=== PATIENT | female | born 1985 | race Caucasian/White ===

== ENCOUNTER 2022-11-20 13:45 | Outpatient (OUT) | payer MEDICAID, SELFPAY | END 2022-11-20 13:46 | disposition home or self-care (01) | LOC: LAB 13:54 | DX: F11.20 Opioid dependence, uncomplicated (principal); R79.89 Other specified abnormal findings of blood chemistry | CPT/HCPCS: 36415; 84702 ==

== ENCOUNTER 2022-11-25 13:10 | Emergency (ER) | payer MEDICAID, SELFPAY ==
[2022-11-25 13:35] VITALS: BP 123/70; PULSE 91; RESP 18; TEMP 37.2; O2SAT 99; BMI 26.9
--- NOTE | 2022-11-25 13:46 | XR_ITS ---
[place] [id number] Patient Name: ARTUR KAUFFMAN MRN: [id number] date: 1985 Sex: F Assigned Patient Location: ER Current Patient Location: ER Accession/Order Number: [id number] Exam Date: 11/25/2022 13:56 Report Date: 11/25/2022 14:19 At the request of: DREW ROBERTSON Procedure: XR chest 1V EXAM: XR chest 1V, 11/25/2022 HISTORY: Cough COMPARISON: Previous x-ray from 2014. TECHNIQUE: Portable AP upright x-ray of the chest. FINDINGS: Cardiac silhouette within normal limits. No hilar or mediastinal enlargement. Calcified nodule left upper lobe consistent with old granuloma. No focal infiltrate or pleural effusion. No acute osseous findings. IMPRESSION: No acute cardiopulmonary findings. Electronically authenticated by: SHABBIR OSHEA Date: 11/25/2022 14:19
--- NOTE | 2022-11-25 13:46 | ECG_ITS ---
[facility] Test Date: 2022-11-25 Pat Name: Coty Bacon Department: Room: - Gender: Female Licensing Officer: : 1985 Requested By: [id number] Order Number: [id number] Reading MD: PERFECTO COLIN Measurements Intervals [place] Rate: 88 P: 77 MI: 134 QRS: 75 QRSD: 82 T: 38 QT: 360 QTc: 406 Interpretive Statements [address]/T wave changes, myocardial ischemia can't be excluded 9130 borderline ECG Compared to ECG 11/25/2022 13:55:38 No significant changes Electronically Signed On 11-26-2022 7:09:20 EDT by PERFECTO COLIN
--- NOTE | 2022-11-25 13:48 | ED.URI1 ---
HPI - URI/Sore Throat General Chief Complaint: Shortness of Breath/Dyspnea Stated Complaint: COUGH Time Seen by Provider: 11/25/22 13:40 Source: patient Limitations: no limitations History of Present Illness HPI Narrative: patient is a 37-year-old female who presents to the emergency department for upper respiratory symptoms for the past two days. She states she is approximately one month . She reports a two day history of subjective fever, nasal congestion, cough with sputum production and chest wall pain with coughing. She vapes daily. No sick contacts in the home. She has not taken her temperature at home but states she has felt warm, she took ibuprofen prior to arrival. No hemoptysis or leg swelling. Related Data Previous Rx's Medication Instructions Recorded albuterol sulfate 90 mcg/actuation 2 inh inhalation Q4H PRN shortness 11/25/22 aerosol inhaler of breath or wheezing #8.5 grams ondansetron 4 mg disintegrating 4 mg PO Q6H PRN nausea and 11/25/22 tablet vomiting #12 tabs Allergies Allergy/AdvReac Type Severity Reaction Status Date / Time ciprofloxacin [From Cipro] AdvReac Intermediate Verified 11/25/22 13:35 bactrim AdvReac Intermediate Uncoded 11/25/22 13:35 Review of Systems ROS Constitutional Denies: fever or chills Ears, nose, mouth, and throat Denies: throat pain or neck pain Respiratory Reports: cough and chest congestion; Denies: shortness of breath Gastrointestinal Denies: nausea or vomiting Musculoskeletal Denies: back pain Integumentary/Breast Denies: rash Psychiatric Denies: anxiety Endocrine Denies: excessive urination Exam Narrative Exam Narrative: Gen.: Awake, alert, in no distress Head: Normocephalic, atraumatic ENT: Moist mucous membranes Respiratory: No respiratory distress, lungs clear bilaterally Cardio: Regular rate and rhythm Extremities: Moves extremities equally Psych: Normal mood and affect Neuro: No focal neuro deficit Skin: Warm, dry, intact Constitutional Vital Signs - 24 hr 11/25/22 13:35 Temperature 99.0 F Pulse Rate [Monitor] 91 H Respiratory Rate 18 Blood Pressure [Left Arm] 123/70 H Pulse Oximetry 99 Oxygen Delivery Method Room Air Course Vital Signs Vital signs: Vital Signs Temperature 99.0 F 11/25/22 13:35 Pulse Rate 91 H 11/25/22 13:35 Respiratory Rate 18 11/25/22 13:35 Blood Pressure 123/70 H 11/25/22 13:35 Pulse Oximetry 99 11/25/22 13:35 Oxygen Delivery Method Room Air 11/25/22 13:35 Temperature 99.0 F 11/25/22 13:35 Pulse Rate 91 H 11/25/22 13:35 Respiratory Rate 18 11/25/22 13:35 Blood Pressure 123/70 H 11/25/22 13:35 Pulse Oximetry 99 11/25/22 13:35 Oxygen Delivery Method Room Air 11/25/22 13:35 MDM - URI/Sore Throat MDM Narrative Medical decision making narrative: chest x-ray was performed, unremarkable and EKG shows no evidence of acute cardiopulmonary changes. Covid test is positive. Patient will be treated with albuterol inhaler, Zofran, as she is we cannot give any additional pain medications or cough medications. She has stable vital signs in the emergency department with no hypoxia or tachycardia. She is encouraged to continue Tylenol for comfort and fever. Follow-up with DEPOSIT CLERK and increase fluids. Return to the Emergency Room if symptoms change or worsen. Medical Records Attestation: I reviewed the patient's medical records. Lab Data Attestation: I reviewed the patient's lab results. Labs: Lab Results 11/25/22 Range/Units 13:50 SARS-CoV-2 (PCR) Positive A (NEGATIVE) Imaging Data Chest x-ray: Attestation: I have reviewed the pertinent imaging results. Radiologist's impression: Procedure: XR chest 1V EXAM: XR chest 1V, 11/25/2022 HISTORY: Cough COMPARISON: Previous x-ray from 2013. TECHNIQUE: Portable AP upright x-ray of the chest. FINDINGS: Cardiac silhouette within normal limits. No hilar or mediastinal enlargement. Calcified nodule left upper lobe consistent with old granuloma. No focal infiltrate or pleural effusion. No acute osseous findings. IMPRESSION: No acute cardiopulmonary findings. Electronically authenticated by: SHABBIR OSHEA Date: 11/25/2022 14:19 ECG Data Attestation: I personally reviewed and interpreted this ECG as follows: (normal sinus rhythm at a rate of eighty-eight, no acute ST elevation or ectopy. EKG reviewed by attending physician.) ECG interpretation date: 11/25/22 ECG interpretation time: 14:23 Discharge Plan Discharge Chief Complaint: Shortness of Breath/Dyspnea Clinical Impression: COVID-19 Patient Disposition: Home, Self-Care Time of Disposition Decision: 14:20 Condition: Good Prescriptions / Home Meds: New albuterol sulfate 90 mcg/actuation HFA aerosol inhaler 2 inh inhalation Q4H PRN (Reason: shortness of breath or wheezing) Qty: 8.5 0RF ondansetron 4 mg tablet,disintegrating 4 mg PO Q6H PRN (Reason: nausea and vomiting) Qty: 12 0RF Instructions: COVID-19 (Coronavirus Disease 2019) (ED) Stand Alone Forms: Portal Instructions Referrals: Physician,Non-Staff, MD [Primary Care Provider] - 1 week
[2022-11-25 14:14] LABS: SARS-CoV-2 Ag POSITIVE (NEGATIVE)
== END 2022-11-25 14:34 | disposition home or self-care (01) ==
PROVIDERS: Physician Assistant; Emergency Provider Emergency Medicine Emergency Medical Services
DX: O98.511 Other viral diseases complicating pregnancy, first trimester (principal); U07.1 COVID-19; Z3A.01 Less than 8 weeks gestation of pregnancy
CPT/HCPCS: 71045; 87635; 93005; 99285

== ENCOUNTER 2024-12-13 15:16 | Outpatient (OUT) | payer MEDICAID, SELFPAY ==
--- OUTSIDE RECORDS SUMMARY | 2018-12-30 10:00 | XMS_ITS | Continuity of Care Document ---
Author Organization [facility] Address [address] [place] [address] Phone Care Team Providers Care Hides And Skins Colorer Name Role Phone guillegunnar PRADEEPJean Marie Hughesdesirerachel Unavailable Unavailabl e Allergies, Adverse Reactions, Alerts Substance Reaction Status Criticality No Known Allergies Active No Inform ation Medications Medication Instructions Dosage Effective Dates (start - stop) Status Comments Mobic 15 mg tablet take 1 tablet by ora l route every day - Active Wellbutrin SR 100 mg tablet, 12 hr sustained-release take 1 tablet by oral route 2 times every day 100 MG - Active buspirone 5 mg tablet take 1 tablet by o ral route 2 times every day 5 MG - Active prednisone 1 mg tablet take 1 tablet by oral route every day 1 MG - Active Remeron 15 mg tablet take 1 tablet by or al route every day before bedtime 15 MG - Active melatonin 5 mg capsule - Active Procedures Procedure Date Nutrit [facility] Dis Dec Tobacco Counseling Oral Hygiene Instruction Extract; Erupted Th/exposted Rt 019 Extract; Erupted Th/exposted Rt 019 Extract; Erupted Th/exposted Rt 019 CHIROPRACTIC MANIPULATION Panoramic Film Limited Oral Eval Oral Hygiene Instruction CHIROPRACTIC MANIPULATION CHIROPRACTIC MANIPULATION CHIROPRACTIC MANIPULATION OFFICE/OUTPATIENT VISIT, EST CHIROPRACTIC MANIPULATION CHIROPRACTIC MANIPULATION CHIROPRACTIC MANIPULATION CHIROPRACTIC MANIPULATION OFFICE/OUTPATIENT VISIT, EST INSERT INTRAUTERINE DEVICE Levonorgestrel iu contracept OFFICE/OUTPATIENT VISIT, EST Condoms NEW FP MEDICAID SPECIMEN HANDLING OFFICE/OUTPATIENT VISIT, EST ROUTINE VENIPUNCTURE CARE COORDINATION SPECIMEN HANDLING FLU VACCINE, 3 YRS & >, IM H1N1 OFFICE/OUTPATIENT VISIT, NEW ROUTINE VENIPUNCTURE RISK ASSISSMENT COUNSELING AND EDUCATION CARE COORDINATION TB INTRADERMAL TEST OFFICE/OUTPATIENT VISIT, EST URINE TEST Advance Directives Directive Yes / No Effective Date File Name No Information Encounters Encounter Description Practice Location Reason(s) For Visit Diagnoses Date Provider Providers Copied on Encounter [facility], [address] [place] [address], [id number], [place] tel:[phone] Dental Clinic extraction (chief complaint) Encounter for screening for dental disorder 9 Tejinder Lutz. [address] [place] [address], [id number], [place]. tel:[phone] [facility], [address] [place] [address], [id number], [place] tel:[phone] [facility] lumbar spine (chief complaint)l umbar spine (chief complaint) Segmental and somatic dysfunction of lumbar regionLow back painSegmental and somatic dysfunction of cervical region 9 Rudolph Dey. [address] [place] [address], [id number], [place]. tel:[phone] [facility], [address] [place] [address], [id number], [place] tel:[phone] Dental Clinic dental limited (chief complaint) Encounter for screening for dental disorder 9 Gillian De Guzman. [address] [place], [place], [id number], [place]. tel:[phone] [facility], [address] [place], [place], [id number], [place] tel:[phone] [facility] lumbar spine (chief complaint)l umbar spine (chief complaint) Segmental and somatic dysfunction of lumbar regionLow back painRadiculopathy , lumbar regionSegmental and somatic dysfunction of cervical region 9 Rudolph Dey. [address] [place], [place], [id number], [place]. tel:[phone] [facility], [address] [place], [place], [id number], [place] tel:[phone] [facility] lumbar spine (chief complaint)l umbar spine (chief complaint) Segmental and somatic dysfunction of lumbar regionLow back painRadiculopathy , lumbar regionSegmental and somatic dysfunction of cervical region 9 Rudolph Dey. [address] [place], [place], [id number], [place]. tel:[phone] [facility], [address] [place], [place], [id number], [place] tel:[phone] [facility] lumbar spine (chief complaint)l umbar spine (chief complaint) Segmental and somatic dysfunction of lumbar regionLow back painRadiculopathy , lumbar regionSegmental and somatic dysfunction of cervical region 9 Rudolph Dey. [address] [place], [place], [id number], [place]. tel:[phone] OFFICE/OUTPAT IENT VISIT, EST [facility], [address] [place], [place], [id number], [place] tel:[phone] [facility] est care (chief complaint) Joint pain of lower extremityAnxiety and depressionBlood pressure checkEncounter for medical examination to establish care 9 Kushal Whitlock. [address] [place], [place], [id number], [place]. tel:[phone] [facility], [address] [place], [place], [id number], [place] tel:[phone] [facility] lumbar spine (chief complaint)l umbar spine (chief complaint) Segmental and somatic dysfunction of lumbar regionLow back painRadiculopathy , lumbar regionSegmental and somatic dysfunction of cervical region 9 Rudolph Dey. [address] [place], [place], [id number], [place]. tel:[phone] [facility], [address] [place], [place], [id number], [place] tel:[phone] [facility] lumbar spine (chief complaint)l umbar spine (chief complaint) Segmental and somatic dysfunction of lumbar regionLow back painRadiculopathy , lumbar regionSegmental and somatic dysfunction of cervical region 9 Rudolph Dey. [address] [place] [address], [id number], [place]. tel:[phone] [facility], [address] [place], [place], [id number], [place] tel:[phone] [facility] lumbar spine (chief complaint)l umbar spine (chief complaint) Segmental and somatic dysfunction of lumbar regionLow back painRadiculopathy , lumbar regionSegmental and somatic dysfunction of cervical region 9 Rudolph Dey. [address] [place] [address], [id number], [place]. tel:[phone] [facility], [address], [place], [id number], [place] tel:[phone] [facility] lumbar spine (chief complaint)l umbar spine (chief complaint) Segmental and somatic dysfunction of lumbar regionLow back painRadiculopathy , lumbar regionSegmental and somatic dysfunction of cervical region 9 Rudolph Dey. [address] [place] [address], [id number], [place]. tel:[phone] OFFICE/OUTPAT IENT VISIT, EST [facility], [address] [place], [place], [id number], [place] tel:[phone] [facility] No Information 2 7-201 0 Lamp Alyssa. [address] [place], [place], [id number], [place]. tel:[phone] [facility], [address] [place], [place], [id number], [place] tel:[phone] [facility] No Information Mar-0 9-201 0 Lamp Alyssa. [address] [place], [place], [id number], [place]. tel:[phone] OFFICE/OUTPAT IENT VISIT, [facility], [address] [place], [place], [id number], [place] tel:[phone] [facility] No Information Mar-0 1-201 0 Claribel Soler. [address] [place], [place], [id number]. tel:[phone] [facility], [address] [place], [place], [id number], [place] tel:[phone] [facility] No Information 6-201 0 Lamp Alyssa. [address] [place], [place], [id number], [place]. tel:[phone] OFFICE/OUTPAT IENT VISIT, [facility], [address], [place], [id number], [place] tel:[phone] [facility] No Information 0 2-200 9 Claribel Soler. [address] [place], [place], [id number]. tel:[phone] [facility], [address] [place], [place], [id number], [place] tel:[phone] [facility] No Information 0 2-200 9 Verna Grimaldo. [address] [place], [place], [id number], [place]. tel:[phone] OFFICE/OUTPAT IENT VISIT, [facility], [address], [place], [id number], [place] tel:[phone] [facility] No Information 9 Claribel Soler. [address] [place], [place], [id number]. tel:[phone] OFFICE/OUTPAT IENT VISIT, EST [facility], [address] [place], [place], [id number], [place] tel:[phone] [facility] No Information 9 Verna Grimaldo. [address] [place], [place], [id number], [place]. tel:[phone] [facility], [address] [place], [place], [id number], [place] tel:[phone] [facility] physical (chief complaint) Sports Physical 9 Stierwalt DIVISION SALES MANAGER-C Judy. [address] [place], [address], [place]. tel:[phone] Family History Family Member Type Diagnosis Age At Onset Father Problem (finding) Alive and well Mother Problem (finding) Alive and well Payers Payer name Insurance type Covered libertarian ID Sid vaughan(laurel) D Medicaid Wrap - [facility] [id number] D Medicaid Primary [facility] [id number] Social History Type Description Quantity Date Captured Comments Alcohol Use Details beer & wine Caffeine Use Details Unknown Tobacco Use Status Heavy cigarette smok er (20-39 cigs/day) Smoking Status Heavy tobacco smoker Smoking Tobacco Use Details Cigarette: Age Started: 12 Cigarette: 20 Cigarettes per day Sex Female Sexual Orientation Straight or heterosexual Gender Identity Female Vital Signs Date / Time: Height Weight BMI Pulse Rate Blood Pressure Temperature Respiratory Rate Body Surface Area Head Circumference Head Circ. Percentile Wt./Virgil. Percentile BMI percentile Pulse Ox Inhaled Ox 2:26 PM 85 /min 118/79 mm[Hg] Chief Complaint And Reason For Visit From encounter dated '12/30/2018 14:00'. extraction (chief complaint). Description: extraction continue with treatment Reason For Referral Reason For Referral No Information Plan Of Treatment Date Type Action Status Goal Depression screening. Due on due Goal Tdap. Due on due Goal Influenza vaccine. Due on due Goal RLP. Due on due Goal RLP. Due on due Goal Influenza vaccine. Due on due Goal Tdap. Due on due Goal Depression screening. Due on due Goal RLP. Due on due Goal Influenza vaccine. Due on due Goal Tdap. Due on due Goal Depression screening. Due on due Goal Depression screening. Due on due Goal Tdap. Due on due Goal Influenza vaccine. Due on due Goal RLP. Due on due Goal Influenza vaccine. Due on due Goal RLP. Due on due Goal Tdap. Due on due Goal Depression screening. Due on due Goal Tdap. Due on due Goal Depression screening. Due on due Goal RLP. Due on due Goal Influenza vaccine. Due on due Goal Tdap. Due on due Goal Depression screening. Due on due Goal Influenza vaccine. Due on due Goal RLP. Due on due Goal Tdap. Due on due Goal Depression screening. Due on due Goal Influenza vaccine. Due on due Goal RLP. Due on due Goal RLP. Due on due Goal Influenza vaccine. Due on due Goal Depression screening. Due on due Goal Tdap. Due on due Goal Tdap. Due on due Goal RLP. Due on due Goal Influenza vaccine. Due on due Goal Depression screening. Due on due Goal Depression screening. Due on due Goal Tdap. Due on due Goal RLP. Due on due Goal Influenza vaccine. Due on due Goal PAP. Due on due History Of Present Illness Encounter Date Complaint History Of Prese nt Illness extraction extraction jen nue with treatment lumbar spine lumbar spine Pt continues to progress as anticipated.RI score today 39 dental limited dental Emergency , tooth #29 lumbar spine lumbar spine Pt continues to progress as anticipated.RI score today 42 lumbar spine lumbar spine pt reports sligh t improvement today. lumbar spine lumbar spine Pt reports suzi ess in left hip and knee. est care Pt is here to t care. Pt is currently staying at our sober living home. She says that she has hypertension and needs to be on medication. Pt is seeing [facility] for [facility]. All prescriptions in chart are from [facility] psych but she is unaware of the dosage. I set her up with women's health because she had an abnormal pap when she was in [facility] last month. Records release signed for [facility]. NDiltsCMAPanic disorder, PTSD, Social anxiety disorder diagnosed at [facility] mental health. Prescribed medications and unable to fill due to issues with insurance coverage transitioning inmate [facility] insurance to insurance started after release. Electric Refrigerator Servicer at [facility] notified her it should be fixed but unable to get medications filled at [facility]. Complaints of left knee and left hip pain. No known injury, no redness or swelling. 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 Unaware if this is causing her knee and left anterior hip pain.Placed on clonidine for BP while at [facility] for HTN after being placed on 1 south. HAs not been on medication since being in [place] [facility], no previous history of HTN prior to [facility] starting the medication 6 months ago. RGonzales DIGITAL MEDIA DESIGNER lumbar spine lumbar spine Pt reports pain in left low back/hip along with flare up of depression. lumbar spine lumbar spine Pt continues to progress as anticipated. lumbar spine Pt reports suzi ess in left hip. lumbar spine lumbar spine lumbar spine C/O low back savage n extending in to left hip. Pain also starting to effect left knee. Sx began 11 years during childbirth when felt left SI pop and hasn't been the same since. Also reports chronic achiness in both feet and explains was pigeon toed when a child and had to wear braces. Pt also in early stages of recovery from ADRIAN.Sx are the result of regular ADL'S. Pain is primarily at L3-L5 PVM on the Lt. and extends to the SI joint, Lt. Symptoms present with a pain scale of 8 (VAS = 1-10). Pain interferes with regular ADL's. Increase in pain with movement/ROM and ADL'S including excessive walking.Some decrease in symptoms with rest and yoga.No change in the pain pattern from the onset of symptoms. Pain pattern is as prior times. Functional Status Date Functional Assessmen t No Information Instructions Date Instruction Additional Infor mation No Information Assessments Type Assessment Date assessment Encounter for screening for dent al disorder Patient Care Teams Name Effective Dates (start - stop) Status Members No Information
--- OUTSIDE RECORDS SUMMARY | 2024-12-13 15:20 | XMS_ITS | Encounter Summary ---
Author Organization [facility] Address [address], [address] [place] [address] Care Team Providers Care Felt Hanger Name Role Phone Naye Cameron APRN - GOVERNMENT INSTRUCTOR Primary Care Provider Reason for Visit * Reason Onset Date Comments Medication Refill 09/30/2024 Encounter Details Date Type Department Care Team (Late st Contact Info) Description 09/30/2024 Refill [facility] [address] [place] [id number] Karan Bui PA [address] [place] [address] Medication Refill Social History Tobacco Use Types Packs/Day Years Used Date Smoking Tobacco: Former Cigarettes Passive Smoke Exposure: Current Smokeless Tobacco: Former Chew Comments:Quit cigs 2020 Alcohol Use Standard Drinks/Week Comments No 0 (1 standard drink = 0.6 oz pur e alcohol) [facility] Utilities Answer Date Recorded In the past 12 months has [employer], gas, oil, or water [email or web address] threatened to shut off services in your home? Yes 04/25/2024 Hunger Vital Sign Answer Date Recorded Within the past 12 months, y ou worried that your food would run out before you got the money to buy more. Sometimes true Within the past 12 months, t he food you bought just didn't last and you didn't have money to get more. Sometimes true 06/2023 PRAPARE - Transportation Answer Date Re corded In the past 12 months, has l ack of transportation kept you from medical appointments or from getting medications? Yes 06/2023 In the past 12 months, has l ack of transportation kept you from meetings, work, or from getting things needed for daily living? Yes 04/25/2024 Housing Stability Vital Sign Answer William e Recorded In the last 12 months, was t here a time when you were not able to pay the mortgage or rent on time? Yes 04/25/2024 In the past 12 months, how m any times have you moved where you were living? 3 04/25/2024 At any time in the past 12 m [facility], were you homeless or living in a [facility] (including now)? Yes 04/25/2024 Food Insecurity Answer Date Recorded Within the past 12 months, y ou worried that your food would run out before you got the money to buy more. 2 04/25/2024 Within the past 12 months, t he food you bought just didn't last and you didn't have money to get more. 2 04/25/2024 Interpersonal Safety Domain Source: IP Abuse Scr eening Answer Date Recorded Physical abuse Denies 04/25/2024 Verbal abuse Denies 04/25/2024 Emotional abuse Denies 04/25/2024 Financial abuse Denies 04/25/2024 Sexual abuse Denies 04/25/2024 Comments No Sex and Gender Information Value Date Recorded Sex Assigned at Not on file Legal Sex Female 12:34 PM EST Gender Identity Not on file Sexual Orientation Not on file documented as of this encounter Plan of Treatment Not on file documented as of this encounter Visit Diagnoses Diagnosis Hematoma Contusion of unspecified site S/P revision of total hip Hip joint replacement by other means documented in this encounter Care Teams Felt Hanger Relationship Specialty Start Date End Date Naye Cameron, CLINICAL PRACTICE CONSULTANT - GOVERNMENT INSTRUCTOR [address] [place] [address] PCP - General 08/12/21 documented as of this encounter
--- OUTSIDE RECORDS SUMMARY | 2024-12-13 15:20 | XMS_ITS | Patient Health Record ---
Author Organization [facility] Address [address] [place] [address] Care Team Providers Care Herpetologist Name Role Phone Pradeep Mcdaniel [phone] Allergies Allergen (clinical drug ingredient) Drug/Non Drug Allergy documented on EMR Reaction Allergy Type Onset Date Status ciprofloxacin Cipro swelling of the lips Drug Allergy Active sulfamethoxazole / trimethoprim Bactrim swelling of the lips Drug Allergy Active Reason For Referral No Information Medications Medication SIG (Take, Route, Frequency, Duration) Notes Start Date End Date Status Suboxone Active Flexall Active naproxen Active Social History Tobacco Use: Social History Observation Description Date Details (start date - stop date) Current Smoker NA - NA Smoking History Question Answer Notes Smoking Status Current Smoker Problems Problem Type SNOMED Code ICD Code Onset Dates Problem Status W/U Status Risk Notes Problem 69015814 Pain in left hip (M25.552) Active confirmed Problem [id number] Arthritis of left hip (M16.12) Active confirmed Plan Of Treatment No Information Insurance Providers Payer Name Payer Address Payer Phone Subscriber Number Group Number Insured Name Patient Relationship to Insured Coverage Start Date Coverage End Date [facility] [employer] [address] [place] [address] [id number] ARTUR KAUFFMAN Self - patient is the insured Medical (General) History Medical History History ICD Code Seizures: Yes Depression: Yes Mental Illness: Yes Anxiety: Yes Hepatitis: Yes Drug Allergies: Yes Surgical History Surgery Date(Month/Year) Gall Bladder removal 09/2004
--- OUTSIDE RECORDS SUMMARY | 2024-12-13 15:20 | XMS_ITS | Patient Health Record ---
Author Organization [facility] Address [address] [place] [address] Care Team Providers Care Biztalk Software Developer Name Role Phone Samira Bryant Primary Care Provider Allergies Allergen (clinical drug ingredient) Drug/Non Drug Allergy documented on EMR Reaction Allergy Type Onset Date Status sulfamethoxazole / trimethoprim Bactrim (uncoded) anaphylaxis Allergy Active Reason For Referral No Information Medications Medication SIG (Take, Route, Frequency, Duration) Notes Start Date End Date Status Prazosin HCl 2 MG 1 capsule at bedtime Orally Once a day; Duration: 30 day(s) 01/02/2020 Active Venlafaxine HCl ER 150 MG 1 capsule with food Orally Once a day; Duration: 30 day(s) 01/02/2020 Active Gabapentin 100 MG 1 capsule Orally Onc e a day; Duration: 30 day(s) 11/10/2019 Active Melatonin 5 MG 1 tablet in the even ing Orally Once a day; Duration: 30 day(s) 01/02/2020 Active hydrOXYzine Pamoate 50 MG 1 capsule as n eeded Orally every 8 hrs; Duration: 30 day(s) 10/27/2019 Active Social History Tobacco Use: Social History Observation Description Date Details (start date - stop date) Current Smoker NA - NA Tobacco Screen: Question Answer Notes Are you a: current smoker How often do you smoke cigarettes? every day How many cigarettes a day do you smoke? 11-20 How soon after you wake up do you smoke your fir st cigarette? 6-30 min Sexual Hx: Question Answer Notes Had sex in the last 12 months (vaginal, oral, or anal)? Yes with Men only Use protection? No Problems Problem Type SNOMED Code ICD Code Onset Dates Problem Status W/U Status Risk Notes Problem Anxiety (54903373) Anxiety (F41.9) Active confirmed Problem Posttraumatic stress disorder (45476422) PTSD (post-traumatic stress disorder) (F43.10) Active confirmed Problem Difficulty sleeping (462191864) Difficulty sleeping (G47.9) Active confirmed Problem Migraine without aura, not refractory (549650489) Migraine without aura and without status migrainosus, not intractable (G43.009) Active confirmed Problem Mild major depression, single episode (41739712) Current mild episode of major depressive disorder, unspecified whether recurrent (F32.0) Active confirmed Plan Of Treatment No Information Insurance Providers Payer Name Payer Address Payer Phone Subscriber Number Group Number Insured Name Patient Relationship to Insured Coverage Start Date Coverage End Date [employer] [employer] [address] [place] [address] [id number] ARTUR KAUFFMAN Self - patient is the insured 0 [employer] after [employer] [address] [place] [address] [id number] ARTUR KAUFFMAN Self - patient is the insured 0 Medical (General) History Medical History History ICD Code HEP C HEP B ptsd Surgical History Surgery Date(Month/Year) cholesystectomy 2003 Hospitalization History Reason Date(Month/Year) Acute Liver Failure 2018
--- OUTSIDE RECORDS SUMMARY | 2024-12-13 15:20 | XMS_ITS | Clinical Summary ---
Author Organization [facility] Address [address], [address] [place] [address] Care Team Providers Care Mix Chemist Name Role Phone Naye Cameron APRN - BARGE CAPTAIN Primary Care Provider Allergies Active Allergy Reactions Criticality Noted Date Comments Sulfamethoxazole-Trimethoprim Swelling 2021 Lip swelling Ciprofloxacin Hcl Swelling 06/13/2021 Lip swelling Medications naproxen (NAPROSYN) 500 MG tablet Take 500 mg by mouth 2 times daily (with meals) Active buprenorphine-n aloxone (SUBOXONE) 8-[address] film [address] 1 Film under the tongue daily. Active aspirin-acetami nophen-caffeine (EXCEDRIN MIGRAINE) 250-250-65 MG per tablet Take 1 tablet by mouth every 6 hours as needed for Headaches Active albuterol sulfate HFA (PROVENTIL HFA) 108 (90 Base) MCG/ACT inhaler Inhale 2 puffs into the lungs every 6 hours as needed for Wheezing 18 g 3 3 Active Additional Information Patient not taking.Reported on 04/20/2024 oxyCODONE (ROXICODONE) 5 MG immediate release tablet Take 1 tablet by mouth every 4 hours as needed for Pain. Max Daily Amount: 30 mg Active aspirin 81 MG EC tablet Take 1 tablet by mouth in the morning and at bedtime 84 tablet 4 Active acetaminophen (TYLENOL) 500 MG tablet Take 1 tablet by mouth every 6 hours as needed for Pain 112 tablet 4 Active docusate sodium (COLACE) 100 MG capsule Take 1 capsule by mouth 2 times daily 20 capsule 4 Active gabapentin (NEURONTIN) 100 MG capsule Take 1 capsule by mouth 3 times daily for 14 days. 42 capsule 4 Active naproxen (NAPROSYN) 500 MG tablet Take 1 tablet by mouth 2 times daily (with meals) 28 tablet 4 Active gabapentin (NEURONTIN) 100 MG capsuleIndicati ons:Hematoma,S/ P revision of total hip Take 1 capsule by mouth 3 times daily for 30 days. Intended supply: 90 days 90 capsule 5 Active gabapentin (NEURONTIN) 300 MG capsuleIndicati ons:S/P revision of total hip Take 1 capsule by mouth 3 times daily for 30 days. 90 capsule 5 Active cyclobenzaprine (FLEXERIL) 5 MG tabletIndicatio ns:S/P revision of total hip Take 1 tablet by mouth 3 times daily as needed for Muscle spasms 21 tablet 5 Active diclofenac (VOLTAREN) 75 MG EC tabletIndicatio ns:S/P revision of total hip Take 1 tablet by mouth 2 times daily (with meals) for 14 days 28 tablet 5 Active cyclobenzaprine (FLEXERIL) 10 MG tabletIndicatio ns:Hematoma,S/P revision of total hip TAKE 1 TABLET BY MOUTH NIGHTLY NEEDED FOR MUSCLE SPASMS 10 tablet 5 11/14/19 25 Active Problems Problem Noted Date Diagnosed Date Iron deficiency anemia 04/28/2024 Blood loss anemia 04/28/2024 Acute kidney injury 04/27/2024 Hypotension 04/26/2024 Methamphetamine abuse 04/26/2024 Hypoglycemia 04/26/2024 Psoas abscess 04/26/2024 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/26/2024 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 4 Encounters Date Type Department Care Team Description 11/02/2024 Refill [facility] [address] [address] Karan Bui PA Medication Refill 10/25/2024 2:05 PM EDT Ancillary Procedure [facility] [address] [place] [address] S/P revision of total hip 10/25/2024 1:30 PM EDT Office Visit [facility] [address] [facility] [place] [address] Karan Bui PA S/P revision of total hip (Primary Dx) 09/30/2024 Refill [facility] [address] [facility] [address] [place] [address] Karan Bui PA Medication Refill from Last 3 Months Family History Medical History Relation Name Comments Seizures Maternal Grandmother Relation Name Status Comments Father Alive Maternal Grandmother Mother Alive Social History Tobacco Use Types Packs/Day Years Used Date Smoking Tobacco: Former Cigarettes Passive Smoke Exposure: Current Smokeless Tobacco: Former Chew Tobacco Cessation:Counseling Given: Not Answered Comments:Quit cigs 2020 Alcohol Use Standard Drinks/Week Comments No 0 (1 standard drink = 0.6 oz pur e alcohol) [facility] Utilities Answer Date Recorded In the past 12 months has th e [employer], gas, oil, or water [employer] threatened to shut off services in your [...] any time in the past 12 m [facility], were you homeless or living in a long-term (including now)? Yes 04/25/2024 Food Insecurity Answer [...] on file Sexual Orientation Not on file Last Filed Vital Signs Vital Sign Reading Time Taken Comments Blood Pressure 154/87 04/28/2024 12:05 PM EST Pulse 117 04/28/2024 12:05 PM EST Temperature 37.1 C (98.8 F) 04/28/2024 3:37 PM EST Respiratory Rate 16 04/28/2024 3:37 PM EST Oxygen Saturation 95% 04/28/2024 12:05 PM EST Inhaled Oxygen Concentration - - Weight 65.8 kg (145 lb) 05/10/2024 12:59 PM EST Height 160 cm (5' 2.99 ) 10/25/2024 1:51 PM EDT Body Mass Index 25.69 05/10/2024 12:59 PM EST Plan of Treatment Health Maintenance Due Date Last Done Comments Depression Screen 1996 Varicella vaccine (1 of 2 - 13+ 2-dose series) 1997 HIV screen 1999 Hepatitis C screen 2002 DTaP/Tdap/Td vaccine (1 - Tdap) 2003 Hepatitis B vaccine (1 of 3 - 19+ 3-dose series) 2003 Pap smear 2005 Cervical cancer screen 2014 HPV (without or with Pap) 2014 COVID-19 Vaccine ( season) 2024 02/19/2021 Breast cancer screen 2024 Lipids 2024 Flu vaccine (#1) 12/23/2024 03/26/2009 Hepatitis A vaccine Aged Out 12/11/2020 No longe r eligible based on patient's age to complete this topic GFR test (Diabetes, CKD 3-4, OR last GFR 15-59) Discontinued 04/28/2024, 04/26/2024, 02/15/2024, Additional history exists HPV vaccine Aged Out No longer eligi ble based on patient's age to complete this topic Hib vaccine Aged Out No longer eligi ble based on patient's age to complete this topic Meningococcal (ACWY) vaccine Aged Out No longer eligible based on patient's age to complete this topic Meningococcal B vaccine Aged Out No l onger eligible based on patient's age to complete this topic Pneumococcal 0-49 years Vaccine Aged Out No longer eligible based on patient's age to complete this topic Polio vaccine Aged Out No longer elig ible based on patient's age to complete this topic Medical Devices Implanted Type Area Showroom Manager Device Identifier Shelf Expiration Date Model / Serial / Lot Cement Bone 40 Gm W/ Gentmycn Hi Visc Palacos R+G - [id number] Implanted:Qty : 3 on 04/25/2024 by Jose Urbina DO at [facility] Left: Hip [facility] [id number] 04/23/2027 [id number] / / [id number] Cement Bone 40 Gm W/ Gentmycn Hi Visc Palacos R+G - [id number] Implanted:Qty : 1 on 04/25/2024 by Jose Urbina DO at [facility] Left: Hip [employer] [id number] 02/21/2027 [id number] / / [id number] Cup Acet 40x48 Mm Hip Remedy - [id number] Implanted:Qty : 1 on 04/25/2024 by Jose Urbina DO at [facility] Left: Hip [employer] 08/23/2027 [id number] / / [id number] Head Fem 40 Mm Hip Remedy Spectrum Gv - [id number] Implanted:Qty : 1 on 04/25/2024 by Jose Urbina DO at [facility] Left: Hip [employer]-WD 05/24/2027 GVHDXS / / [id number] Stem Fem Sm Hip Remedy Spectrum Gv - [id number] Implanted:Qty : 1 on 04/25/2024 by Jose Urbina DO at [facility] Left: Hip [employer]WD 08/22/2028 GVSTSM / / [id number] Procedures Procedure Name Priority Date/Time Associated Diagnosis Comments BASIC METABOLIC PANEL W/ REFLEX TO MG FOR LOW K Routine 04/28/2024 7:05 AM EST from Last 3 Months or Most Recently Relevant to Health Maintenance Results * (ABNORMAL) Basic Metabolic Panel w/ Reflex to MG (04/28/2024 7:05 AM EST) Sodium 140 136 - 145 mmol/L 04/28/2024 7:05 AM EST [facility] Potassium 3.8 3.7 - 5.3 mmol/L 04/28/2024 7:05 AM EST [facility] Chloride 112(H) 98 - 107 mmol/L 04/28/2024 7:05 AM EST [facility] CO2 18(L) 20 - 31 mmol/L 04/28/2024 7:05 AM EST [facility] Anion Gap 10 9 - 16 mmol/L 04/28/2024 7:05 AM EST [facility] Glucose 89 74 - 99 mg/dL 04/28/2024 7:05 AM EST [facility] BUN 11 6 - 20 mg/dL 04/28/2024 7:05 AM EST [facility] Creatinine 1.1(H) 0.6 - 0.9 mg/dL 04/28/2024 7:05 AM EST [facility] Est, Glom Filt Rate 66 >60 mL/min/1. 73m2 04/28/2024 7:05 AM EST [facility] Comment: These results are not intended for use in patients <18 years of age. eGFR results are calculated without a race factor using the 2020 CKD-EPI equation. Careful clinical correlation is recommended, particularly when comparing to results calculated using previous equations. The CKD-EPI equation is less accurate in patients with extremes of muscle mass, extra-renal metabolism of creatine, excessive creatine ingestion, or following therapy that affects renal tubular secretion. Calcium 8.5(L) 8.6 - 10.4 mg/dL 04/28/2024 7:05 AM EST [facility] Blood BLOOD SPECIMEN / Unknown 04/28/2024 7:05 AM EST 04/28/2024 7:29 AM EST us Courtney Hatch I, DO CHEMISTRY ORDERABLES Fin al Result Performing Organization Address City/State/[facility] Co de Phone Number [facility] [address] [place] [address], [facility] [phone] from Last 3 Months or Most Recently Relevant to Health Maintenance Insurance [facility] Advance Directives * Full Code (Latest Code Status on File) Date Activated Date Inactivated Comments 04/25/2024 5:42 PM 04/28/2024 7:19 PM Care Teams Mix Chemist Relationship Specialty Start Date End Date Naye Cameron APRN - NP [address] [place] [address] PCP - General 08/12/21
[2024-12-13 15:44] LABS: Hematocrit 39.4 % (36.0-48.0); Hemoglobin 13.6 g/dL (12.0-16.0); Immature Granulocytes Abs Auto 0.01 10^3/uL (0.00-0.03); Immature Granulocytes Pct Auto 0.1 % (0.0-0.5); Lymphocytes Absolute Auto 2.2 10^3/uL (1.2-3.8); Mean Corpuscular HGB Conc 34.5 g/dL (29.9-35.2); Mean Corpuscular Hemoglobin 30.0 pg (26.7-34.0); Mean Corpuscular Volume 86.8 fL (81.0-99.0); Platelet Count 294 10^3/uL (150-450); Red Blood Count 4.54 10^6/uL (4.20-5.40); White Blood Count 7.8 10^3/uL (4.0-11.0)
== END 2024-12-13 15:17 | disposition home or self-care (01) ==
DX: Z96.649 Presence of unspecified artificial hip joint (principal)
CPT/HCPCS: 36415; 85025; 85652; 86140

== ENCOUNTER 2025-02-02 23:34 | Emergency (ER) | payer OTHER, SELFPAY ==
[2025-02-02 23:36] VITALS: BP 121/96; PULSE 89; TEMP 36.7; O2SAT 98; BMI 27.5
--- NOTE | 2025-02-02 23:46 | ED_ITS ---
HPI HPI - General Adult General Chief complaint: Fall Stated complaint: FALL Time Seen by Provider: 02/02/25 23:42 Source: patient Mode of arrival: ambulance Limitations: no limitations History of Present Illness HPI narrative: 39-year-old female presents for pain in her left hip. She states she fell and hurt her hip. She is supposed to be nonweightbearing on it. She states she has had surgery and had a hip replacement but the hardware was removed. The pain is severe and worse if she tries to move it. This occurred just before coming into the emergency department and she was transported here by paramedics. Related Data Previous Rx's ?Medication ?Instructions ?Recorded albuterol sulfate 90 mcg/actuation 2 inh inhalation Q4 H PRN shortness 11/25/22 aerosol inhaler of breath or wheezing #8.5 g deneen ondansetron 4 mg disintegrating 4 mg PO Q6H PRN nausea and 11/25/22 tablet vomiting #12 tabs Allergies Allergy/AdvReac Type Severity Reaction Status Date / Time ciprofloxacin (From Cipro) AdvReac Intermediate swelling Verified 02/02/25 23:43 to lips bactrim AdvReac Intermediate swelling Uncoded 02/02/25 23:43 to lips Opioid HPI Opioid Management Most Recent Opioid Data: Last Pain Scale 8 02/02/25, 23:54 Last ED Pain Assessment 02/02/25, 23:54 Review of Systems ROS Narrative A ten point review of systems is negative except as noted above. PFSH PFSH Social History Little interest or pleasure in doing things: not at all Feeling down, depressed, or hopeless: more than half the days Exam Narrative Exam Narrative: Nurses note and vital signs reviewed and patient is not hypoxic. General: The patient appears uncomfortable and in no respiratory distress Skin: Warm, dry, no pallor noted. There is no rash noted. Head: Normocephalic Eye: Normal conjunctiva, no drainage Ears, Nose, Mouth, and Throat: oral mucosa is moist. Nares patent. Cardiovascular: Regular Rate and Rhythm Respiratory: Patient is in no distress, no accessory muscle use, lungs are clear to auscultation, no wheezing, rales or rhonchi Back: non-tender GI: Soft and nontender Musculoskeletal: The left hip has old healed surgical scars. The left leg is shorter than the right Neurological: A&O x4, normal speech Psychiatric: Cooperative Constitutional Vital Signs, click to edit/add: Last Vital Signs Temp 98.0 F 02/02/25 23:36 Pulse 99 H 02/03/25 00:40 Resp 99 H 02/03/25 00:40 BP 138/90 02/03/25 00:40 Pulse Ox 18 L 02/03/25 00:40 O2 Del Method Room Air 02/02/25 23:36 Course Vital Signs Vital signs: Vital Signs Temperature 98.0 F 02/02/25 23:36 Pulse Rate 89 02/02/25 23:36 Respiratory Rate 20 02/02/25 23:36 Blood Pressure 121/96 H 02/02/25 23:36 Pulse Oximetry 98 02/02/25 23:36 Oxygen Delivery Method Room Air 02/02/25 23:36 Temperature 98.0 F 02/02/25 23:36 Pulse Rate 99 H 02/03/25 00:40 Respiratory Rate 99 H 02/03/25 00:40 Blood Pressure 138/90 02/03/25 00:40 Pulse Oximetry 18 L 02/03/25 00:40 Oxygen Delivery Method Room Air 02/02/25 23:36 Medical Decision Making MDM Narrative Medical decision making narrative: The patient has significant left hip pain. I reviewed the x-ray with Dr. Colorado who is on-call for Dr. Urbina, her regular orthopedist. He is requesting transfer to [facility]. She is stable and agreeable for transfer and he is requesting transfer to the emergency department. I have spoken to Dr. Zarate who is on duty in the emergency department and she is aware as well. Differential Diagnosis Differential Diagnosis: Contusion, fracture, periprosthetic fracture, dislocation Imaging Data Left hip: My impression: Prosthesis, spacer, degenerative changes, no definite acute finding Discharge Plan Discharge Chief Complaint: Fall Clinical Impression: Acute pain of left hip Patient Disposition: [facility] Time of Disposition Decision: 00:57 Discharge Location: [facility] Condition: Fair Mode of Transportation: EMS
--- NOTE | 2025-02-02 23:46 | XR_ITS ---
The [address] [address] Patient Name: ARTUR KAUFFMAN MRN: [id number] date: 1985 Sex: F Assigned Patient Location: ED.MAIN Current Patient Location: Accession/Order Number: [id number] Exam Date: 02/02/2025 23:59 Report Date: 02/03/2025 08:11 At the request of: GABINO FLYNN MD Procedure: XR femur LT 2V CLINICAL DATA: Patient fell and has left hip pain. LEFT HIP - 2 views: COMPARISON: None AP and frog-lateral views were obtained. There is a hip prosthesis. There is lucency surrounding the entire femoral component that may indicate loosening. There are also radiopaque densities in the intertrochanteric region and it is uncertain if these are antibiotic beads for infection. Evaluation is limited by the absence of comparisons and adequate history. There is non traditional radiopaque material with surrounding lucency at the acetabular cup where protrusio is seen. Underlying fracture at this site would be difficult to exclude. The bony structures are osteopenic. There is no other obvious acute fracture. There is superior subluxation of the femoral head with respect to the acetabular component. There are no significant soft tissue abnormalities. XR/XR hip LT min 2V IMPRESSION: LEFT HIP PROSTHESIS WITH ASSOCIATED FINDINGS, DESCRIBED. UNFORTUNATELY THERE ARE NO AVAILABLE COMPARISON STUDIES TO ASSESS STABILITY OF THESE FINDINGS. NO DEFINITE ACUTE FINDINGS HOWEVER FOLLOW-UP IS RECOMMENDED, SYMPTOMS WARRANT. LEFT FEMUR - 2 views COMPARISON: None The bony structures are osteopenic. The above-described hip prosthesis and associated findings are again noted. The remainder of the femur shows no acute fracture. There is no obvious dislocation at the knee within limits of positioning. There is subchondral cystic change at the tibial plateau squaring off the articular margins at the posterior patella. There are no significant soft tissue findings. IMPRESSION: POSTOPERATIVE CHANGES OF HIP REPLACEMENT WITH POSSIBLE SUBLUXATION, LOOSENING AND ANTIBIOTIC BEADS FOR INFECTION. CORRELATION WITH CLINICAL AND ANY PRIOR OUTSIDE IMAGING IS RECOMMENDED. NO OBVIOUS ACUTE BONY INJURY AT THE FEMUR. Impression dictated by: Lavonne Wood M.D. 02/03/2025 8:11 AM Dictation Location: [place] [address] Electronically authenticated by: [id number] Y Date: 02/03/2025 08:11
[2025-02-03 00:40] VITALS: BP 138/90; PULSE 99; O2SAT 18
--- NOTE | 2025-02-03 00:54 | XR_ITS ---
The [address] [address] Patient Name: ARTUR KAUFFMAN MRN: [id number] date: 1985 Sex: F Assigned Patient Location: ED.MAIN Current Patient Location: Accession/Order Number: [id number] Exam Date: 02/03/2025 01:00 Report Date: 02/03/2025 08:11 At the request of: GABINO FLYNN MD Procedure: XR femur LT 2V CLINICAL DATA: Patient fell and has left hip pain. LEFT HIP - 2 views: COMPARISON: None AP and frog-lateral views were obtained. There is a hip prosthesis. There is lucency surrounding the entire femoral component that may indicate loosening. There are also radiopaque densities in the intertrochanteric region and it is uncertain if these are antibiotic beads for infection. Evaluation is limited by the absence of comparisons and adequate history. There is non traditional radiopaque material with surrounding lucency at the acetabular cup where protrusio is seen. Underlying fracture at this site would be difficult to exclude. The bony structures are osteopenic. There is no other obvious acute fracture. There is superior subluxation of the femoral head with respect to the acetabular component. There are no significant soft tissue abnormalities. XR/XR femur LT 2V IMPRESSION: LEFT HIP PROSTHESIS WITH ASSOCIATED FINDINGS, DESCRIBED. UNFORTUNATELY THERE ARE NO AVAILABLE COMPARISON STUDIES TO ASSESS STABILITY OF THESE FINDINGS. NO DEFINITE ACUTE FINDINGS HOWEVER FOLLOW-UP IS RECOMMENDED, SYMPTOMS WARRANT. LEFT FEMUR - 2 views COMPARISON: None The bony structures are osteopenic. The above-described hip prosthesis and associated findings are again noted. The remainder of the femur shows no acute fracture. There is no obvious dislocation at the knee within limits of positioning. There is subchondral cystic change at the tibial plateau squaring off the articular margins at the posterior patella. There are no significant soft tissue findings. IMPRESSION: POSTOPERATIVE CHANGES OF HIP REPLACEMENT WITH POSSIBLE SUBLUXATION, LOOSENING AND ANTIBIOTIC BEADS FOR INFECTION. CORRELATION WITH CLINICAL AND ANY PRIOR OUTSIDE IMAGING IS RECOMMENDED. NO OBVIOUS ACUTE BONY INJURY AT THE FEMUR. Impression dictated by: Lavonne Wood M.D. 02/03/2025 8:11 AM Dictation Location: [place] [address] Electronically authenticated by: [id number] Y Date: 02/03/2025 08:11
[2025-02-03] MEDS: MORPHINE SULFATE 4 MG/ML VIAL 10 MG IM (02:22)
[2025-02-03 02:35] VITALS: BP 94/49; PULSE 78; O2SAT 95
[2025-02-03 03:00] VITALS: BP 94/49; PULSE 78; O2SAT 14
== END 2025-02-03 03:07 | disposition short-term general hospital (02) ==
PROVIDERS: Emergency Provider Emergency Medicine
DX: M25.552 Pain in left hip (principal); Z98.890 Other specified postprocedural states
CPT/HCPCS: 73502; 73552; 80048; 96372; 99285; J2270